=== PATIENT | female | born 1960 | race Caucasian/White ===

== ENCOUNTER → 2016-08-02 | Outpatient (CLI) | payer MEDICARE ==
[~2016-08-02] MED LIST: ACIDOPHILUS-PE1 EAC1 PO; ACIDOPHILUS1 CA1 PO; ADVAIR 230-21 INH; ADVAIR INH; ALBUTEROL MININEB NEB; ALBUTEROL17 GM INH; ALBUTEROL2.5 MG/3 M NEB; ANEXSIA 5/325 M1 TA1 PO; AUGMENTIN875 MG PO; BACTROBAN15 GM TOP; BENZTROPINE MESY1 MG PO; BREO ELLIPTA 11 EACH INH; CERTAVITE W/LUT1 TA1 PO; CHANTIX PO; COGENTIN1 M1 PO; COMPLETE MULTI1 EAC1 PO; DIAZEPAM PO; DILTIAZEM 24HR120 M1 PO; DILTIAZEM 24HR120 MG PO; DOC-Q-LACE100 MG PO; DOCUSATE SODIU100 MG PO; EXCEDRIN ES PO; FERREX 150 FOR1 EACH PO; FERREX 150 PLU1 EACH PO; GUAIFENESIN600 MG PO; HYDROCODON-ACE1 EAC7 PO; IRON325 MG PO; KCL PO; KLOR-CON M20 PO; KLOR-CON PO; LEXAPRO PO; LEXAPRO5 MG PO; LORTAB 7.5-3251 EACH PO; LORTAB 7.5-5001 TAB PO; MILK OF MAGNESIA PO; MIRALAX17 GM PO; MUCINEX100 MG PO; MULTI-VITAMIN1 EAC1 PO; NICOTINE TRANSDE7 MG EXT; OMNICEF300 M1 PO; PANTOPRAZOLE SO40 MG PO; PREDNISONE PO; PREDNISONE10 M1 PO; PREDNISONE10 MG/DOSE PO; SPIRIVA18 MCG INH; VALIUM10 MG PO; ZITHROMAX500 MG PO
--- NOTE | ~2016-08-02 | CT57 ---
[facility] A Service of [facility] RADIOLOGY TEXT RESULTS PATIENT: RORY VIEIRA LOCATION: [facility] : 56 UNIT #: [id number] AGE: [address]: Juan Moya MD SEX: F ORDER DR: [id number] [place] [id number] [facility]. [place], [place] [address] [id number] O MR#: [id number] Acc #: [id number] NAME: RORY VIEIRA : 1960 SEX: F STUDY DATE/TIME: 08/02/2016 15:50 UNIT: [facility] ROOM: STUDY DESCRIPTION: CT Chest Wo Cont Attending Physician: Juan Moya M.D. Referring Physician: Juan Moya M.D. Ordering Physician: Juan Moya M.D. Primary Care Physician: Titi Ruth M.D. MEDICAL IMAGING REPORT This report is preliminary unless electronic signature is present EXAM CT of the chest without contrast INDICATION 56-year-old female with followup COPD and emphysema. Shortness of breath for [address] of the chest was performed without contrast. Coronal and sagittal reformatted images obtained. This CT exam was performed with one or more of the following radiation dose reduction techniques: automatic exposure control, adjustment of mA and/or kV according to patient size, and iterative reconstruction. COMPARISON 12/19/2015 FINDINGS Severe emphysema. Stable scarring/atelectasis within the left lung. No significant change in the parenchymal consolidation within the posterior aspect of the right lung involving the right upper lobe and the superior segment of the right lower lobe. There are no new infiltrates. There is no lymphadenopathy. Trace pericardial fluid or thickening anteriorly. No pleural effusion. Stable small ovoid fluid density collection within the anterior right chest wall, likely a sebaceous cyst. Limited imaging of the upper abdomen is unremarkable. Bone windows demonstrate stable increased kyphosis of the thoracic spine. IMPRESSION 1. Severe emphysema. 2. No significant change in the parenchymal consolidation in the [facility] A Service [facility] RADIOLOGY TEXT RESULTS PATIENT: RORY VIEIRA LOCATION: [facility] : 56 UNIT #: [id number] AGE: [address]: Juan Moya MD SEX: F ORDER DR: posterior right lung. 3. No new infiltrates. Dictated by... Jesse Mueller M.D. THIS IS AN ELECTRONICALLY VERIFIED REPORT Jesse Mueller M.D. at 08/03/2016 8:57 AM JACQUELINE/dhaval TD: 08/03/2016 08:14 JOB #: [id number] MEDICAL IMAGING REPORT Page 1 of 1 COPY
== END | disposition home or self-care (01) ==
LOC: CCAT 15:29
DX: J44.1 Chronic obstructive pulmonary disease with (acute) exacerbation (principal); J43.9 Emphysema, unspecified
CPT/HCPCS: 71250

== ENCOUNTER 2016-08-11 18:44 | Emergency (ER) | payer MEDICARE ==
--- NOTE | ~2016-08-11 | CR72 ---
[facility] A Service of [facility] & [facility] RADIOLOGY TEXT RESULTS PATIENT: RORY VIEIRA LOCATION: [facility] : 56 UNIT #: [id number] AGE: [address]: Richard Vaughan MD SEX: F ORDER DR: [id number] [facility] [address] [place], [place] [address] [id number] E MR#: [id number] Acc #: [id number] NAME: RORY VIEIRA. : 1960 SEX: F STUDY DATE/TIME: 08/11/2016 18:51 UNIT: [facility] ROOM: STUDY DESCRIPTION: CR Chest Single View Portable Attending Physician: Richard Vaughan M.D. Ordering Physician: Richard Vaughan M.D. Primary Care Physician: Titi Ruth M.D. MEDICAL IMAGING REPORT This report is preliminary unless electronic signature is present EXAM Chest x-ray dated 08/11/2016 COMPARISON Chest 2 views dated 06/04/2016, CT chest without contrast dated 08/02/2016. HISTORY Chest pain for 6 days. FINDINGS Single view of the chest was obtained. Hyperinflated lungs are suggestive of emphysematous changes. Minimal atelectatic changes are in the lung bases bilaterally particularly in the right lower lung zone. No pleural effusion, pneumothorax or lung mass is seen. Postoperative changes with internal fixation of the left humerus is seen. Dictated by... Varun Dukes M.D. THIS IS AN ELECTRONICALLY VERIFIED REPORT Varun Dukes M.D. at 08/14/2016 1:39 PM CPR/mjs TD: 08/12/2016 13:27 JOB #: [id number] MEDICAL IMAGING REPORT Page 1 of 1 COPY
--- NOTE | ~2016-08-11 | EKG ---
PATIENT: RORY VIEIRA UNIT #: [id number] Ventricular Rate: 97 BPM Atrial Rate: 97 BPM P-R Interval: 140 ms QRS Duration: 82 ms Q-T Interval: 344 ms QTC Calculation(Bezet): 436 ms P [place]: 83 degrees Calculated R [place]: 46 degrees Calculated T [place]: 74 degrees Diagnosis Line: Sinus rhythm with occasional Premature ventricular Diagnosis Line: complexes Diagnosis Line: Biatrial enlargement Diagnosis Line: Abnormal ECG Diagnosis Line: When compared with ECG of 04-JUN-2016 12:45, Diagnosis Line: Premature ventricular complexes are now Present Diagnosis Line: Confirmed by DANUTA JORDAN MD ([id number]) on Diagnosis Line: 08/12/2016 4:54:43 PM INTERPRETING MD: ISELA
--- NOTE | ~2016-08-11 | CT16 ---
[facility] A Service of [facility] & [facility] RADIOLOGY TEXT RESULTS PATIENT: RORY VIEIRA LOCATION: [facility] : 56 UNIT #: [id number] AGE: [address]: Richard Vaughan MD SEX: F ORDER DR: [id number] [facility] [address] [place], [place] [address] [id number] MR#: [id number] Acc #: [id number] NAME: RORY VIEIRA. : 1960 SEX: F STUDY DATE/TIME: 08/11/2016 20:21 UNIT: [facility] ROOM: STUDY DESCRIPTION: CT Angio Chest for PE Attending Physician: Richard Vaughan M.D. Ordering Physician: Richard Vaughan M.D. Primary Care Physician: Titi Ruth M.D. MEDICAL IMAGING REPORT This report is preliminary unless electronic signature is present EXAM CT chest with contrast, pulmonary arteriography protocol, 08/11/2016. HISTORY A 56-year-old female in the ED complaining of 5-day history of chest pain and back pain. History of severe emphysema on home oxygen. TECHNIQUE CT examination of the chest was performed with IV contrast using pulmonary arteriography protocol. 3-D CTA images of the pulmonary arteries were reformatted in multiple planes. COMPARISON CT chest, 08/02/2016, 03/20/2016 and 10/12/2015. FINDINGS No pulmonary embolism is demonstrated. Normal-caliber thoracic aorta. Heart size is normal. Small pericardial effusion. 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 Severe pulmonary emphysema involving both lungs diffusely, greatest in the upper lobes. Bronchial wall thickening is seen in the central portions of both lower lobes with some mild hazy ground-glass infiltrate throughout the right lower lobe, likely representing acute bronchitis and mild pneumonitis. Chronic focal scarring is present in the superior segment right lower lobe. There is no significant pleural effusion. No suspicious mass or adenopathy within the mediastinum. Probable benign sebaceous cyst in the right anterior chest wall. Limited upper abdominal images show moderate dilatation of the extrahepatic bile ducts to the level of the ampulla. [facility] A Service of [facility] & [facility] RADIOLOGY TEXT RESULTS PATIENT: RORY VIEIRA LOCATION: [facility] #: [id number] : 56 UNIT #: [id number] AGE: [address]: Richrad Vaughan MD SEX: F ORDER DR: IMPRESSION 1. No evidence of pulmonary embolism. 2. Normal-caliber thoracic aorta. 3. Small pericardial effusion. Heart size normal. 4. Severe pulmonary emphysema involving both lungs diffusely, greatest in the upper lobes. 5. Diffuse bronchial wall thickening in the lower lungs and mild ground-glass opacity throughout the right lower lobe suggesting acute bronchitis and probable mild pneumonitis. 6. Chronic scarring and volume loss in the superior segment right lower lobe, unchanged since the last 2 prior studies. 7. Likely benign sebaceous cyst in the skin of the right anterior chest wall. 8. Limited upper abdominal images showing significant dilatation of the extrahepatic bile duct. Nondistended gallbladder. No definite intrahepatic bile duct dilatation. Dictated by... Juan Johansen M.D. THIS IS AN ELECTRONICALLY VERIFIED REPORT Juan Johansen M.D. at 08/14/2016 5:59 AM Suman TD: 08/12/2016 15:45 JOB #: [id number] MEDICAL IMAGING REPORT Page 1 of 1 COPY
[~2016-08-11 18:44] MED LIST changes: -ALBUTEROL2.5 MG/3 M NEB; -BREO ELLIPTA 11 EACH INH; -COMPLETE MULTI1 EAC1 PO; -DILTIAZEM 24HR120 M1 PO; -IRON325 MG PO; -KLOR-CON PO; -LEXAPRO PO; -LORTAB 7.5-3251 EACH PO; -MUCINEX100 MG PO; -PANTOPRAZOLE SO40 MG PO; -PREDNISONE10 M1 PO; -VALIUM10 MG PO
[2016-08-11 18:58] LABS: BASOPHIL% 0.2 % (0-2.5); DIFF IND NO; EOSINOPHIL# 0.1 X10e3 (0-0.7); EOSINOPHIL% 2.6 % (0.0-7.0); HEMATOCRIT 34.1 % (35.0-45.0); HEMOGLOBIN 10.8 gm/dL (12.0-16.0); LYMPHOCYTE# 1.4 X10e3 (1.0-3.5); LYMPHOCYTE% 24.4 % (17.0-45.0); MEAN CELL VOLUME 92.9 FL (83-96); MEAN CORPUSCULAR HEMOGLOBIN 29.3 PG (28-34); MEAN CORPUSCULAR HGB CONC 31.6 g/dL (30-36); MEAN PLATELET VOLUME 8.9 FL (6.5-11.5); MONOCYTE# 0.5 X10e3 (0-1.0); NEUTROPHIL# 3.7 X10e3 (1.5-7.1); NEUTROPHIL% 63.8 % (40-75); PLATELET COUNT 144 X10e3 (140-420); RED BLOOD COUNT 3.68 X10e (3.90-5.30); WHITE BLOOD COUNT 5.8 X10e3 (4.0-10.5)
[2016-08-11 19:01] LABS: POC - CKMB 1.8 ng/mL (0.0-7.9); POC - TROPONIN <0.05 ng/mL (<=0.05)
[2016-08-11 19:09] LABS: INR 0.9; PARTIAL THROMBOPLASTIN TIME 28.2 SECONDS (23.5-31.3); PROTHROMBIN TIME (PATIENT) 9.7 SECONDS (9.6-11.5)
[2016-08-11 19:35] LABS: ALBUMIN SERUM 4.4 g/dL (3.5-5.0); ALKALINE PHOSPHATASE 107 U/L (32-92); ALT (SGPT) 15 U/L (10-40); AST (SGOT) 18 U/L (10-42); BILIRUBIN, DIRECT <0.1 mg/dL (0.0-0.2); BILIRUBIN,INDIRECT 0.2 mg/dL (0.0-0.9); BILIRUBIN,TOTAL 0.3 mg/dL (0.2-2.0); BLOOD UREA NITROGEN 17 mg/dL (9-23); BUN/CREATININE RATIO 56.66; CALCIUM SERUM 9.6 mg/dL (8.4-10.2); CARBON DIOXIDE 37 mmol/L (22-31); CHLORIDE 94 mmol/L (100-111); CREATININE SERUM 0.3 mg/dL (0.6-1.4); GLOM FILT RATE Estimated 126.3 mL/min (>60); GLUCOSE FASTING 134 mg/dL (70-110); POTASSIUM 4.3 mmol/L (3.5-5.1); PROTEIN TOTAL SERUM 7.3 g/dL (6.0-8.3); SODIUM 140 mmol/L (135-145)
== END 2016-08-11 21:52 | disposition home or self-care (01) ==
LOC: CED 18:44
PROVIDERS: Emergency Medicine
DX: J18.9 Pneumonia, unspecified organism (principal); J20.9 Acute bronchitis, unspecified; F41.9 Anxiety disorder, unspecified; F32.9 Major depressive disorder, single episode, unspecified; Z90.49 Acquired absence of other specified parts of digestive tract; Z88.8 Allergy status to other drugs, medicaments and biological substances; F17.200 Nicotine dependence, unspecified, uncomplicated
CPT/HCPCS: 36415; 71010; 71275; 80048; 80076; 82553; 84484; 85025; 85379; 85610; 85730; 93005; 96374; 99284; J2930; Q9967

== ENCOUNTER 2016-12-06 17:25 | Inpatient (IN) | payer MEDICARE ==
[~2016-12-06] VITALS: Ht 157.5 cm; Wt 55.8 kg
--- NOTE | ~2016-12-06 | CT71 ---
[facility] A Service of [facility] RADIOLOGY TEXT RESULTS PATIENT: RORY VIEIRA LOCATION: [facility] 46[facility] : 56 UNIT #: [id number] AGE: [address]: Juan Moya MD SEX: F ORDER DR: [id number] [facility] [address] [place], [place] [address] [id number] I MR#: [id number] Acc #: [id number] NAME: RORY VIEIRA : 1960 SEX: F STUDY DATE/TIME: 12/06/2016 20:05 UNIT: [facility] ROOM: [facility] STUDY DESCRIPTION: CT Head Wo Contrast Attending Physician: Juan Moya M.D. Ordering Physician: Carl Lino D.O. Primary Care Physician: Titi Ruth M.D. MEDICAL IMAGING REPORT This report is preliminary unless electronic signature is present EXAM Head CT without contrast 12/06/2016. HISTORY Diffuse headache, nausea, chills and fever beginning 12/05/2016 with dizziness. TECHNIQUE Axial noncontrast images were obtained from the skull base to the vertex. This CT exam was performed with one or more of the following radiation dose reduction techniques: automatic exposure control, adjustment of mA and/or kV according to patient size, and iterative reconstruction. FINDINGS Ventricular size and configuration are normal. There is no evidence of acute infarct or hemorrhage. There are no extraaxial fluid collections. No mass lesion or mass effect is seen. There are no skull fractures. IMPRESSION Normal noncontrast head CT. Dictated by... Brody Bolanos M.D. THIS IS AN ELECTRONICALLY VERIFIED REPORT Brody Bolanos M.D. at 12/07/2016 10:22 AM KRT/gz TD: 12/07/2016 09:07 JOB #: [id number] MEDICAL IMAGING REPORT [facility] A Service [facility] RADIOLOGY TEXT RESULTS PATIENT: RORY VIEIRA LOCATION: [place] [address] : 56 UNIT #: [id number] AGE: [address]: Juan Moya MD SEX: F ORDER DR: Page 1 of 1 COPY
--- NOTE | ~2016-12-06 | DS ---
Unit #: [id number] #: [id number] Patient: RORY VIEIRA [id number] [address] [address] [id number] I MR#: [id number] NAME: RORY VIEIRA. ROOM: 461 Age: 56 Sex: F Admission Date: 12/06/2016 : 1960 Discharge Date: 12/11/2016 Attending Physician: Juan Moya M.D. Primary Care Physician: Titi Ruth M.D. DISCHARGE SUMMARY DISCHARGE DIAGNOSES 1. Acute and chronic hypoxemic respiratory failure. 2. Chronic obstructive pulmonary disease exacerbation. 3. Right lower lobe pneumonia, Strep pneumonia. DISCHARGE MEDICATIONS 1. Albuterol neb every four hours as needed. 2. Breo 100 one puff daily. 3. Prednisone 40 mg for three days, decrease by 10 mg every three days until off. 4. Lexapro 5 mg p.o. daily. 5. Valium as per direction of Dr. Ruth. 6. Diltiazem 120 mg daily. 7. Mucinex 60 mg daily. 8. Ferrous sulfate 65/325 daily. 9. Multivitamin daily. 10. Hydrocodone APAP 7.5/325 every 6 hours as needed. 11. Protonix 40 mg p.o. daily. 12. Potassium 20 mEq daily. 13. Zithromax 500 mg daily x3 days. HOSPITAL COURSE Patient admitted with exacerbation of COPD and acute and chronic respiratory failure. White count was elevated at about 20,000. Exam revealed egophony right base. Chest x-ray showed no definite pneumonia. Followup chest x-ray revealed some mild atelectasis left lower lobe. CLINICAL IMPRESSION Pneumonia, right lower lobe community acquired. Sputum grew out Strep pneumoniae. She was treated with inhaled bronchodilators, IV Solu-Medrol and broad spectrum antibiotics in the form of Zithromax and Rocephin. Strep pneumonia was sensitive to all antibiotics tested. She improved with treatment. Steroids were weaned. She is being discharged home on her home oxygen. She was only on albuterol nebulizer at home because she could not afford any other medicines. We have recommended Breo one inhalation daily. She can get samples at the office. She will followup with Dr. Ruth. We will see if she is able to obtain medications through drug company due to lack of funds. She is also to be discharged on her home O2. Dictated by... Garret Fernandez M.D. Unit #: [id number] #: [id number] Patient: RORY VIEIRA BHUMI/ts TD: 12/12/2016 11:13 JOB #: [id number] CC: Juan Moya M.D. DISCHARGE SUMMARY Page 1 of 1 X Garret Fernandez MD X DISCHARGE SUMMARY
--- NOTE | ~2016-12-06 | EKG ---
PATIENT: RORY VIEIRA UNIT #: [id number] Ventricular Rate: 117 BPM Atrial Rate: 117 BPM P-R Interval: 142 ms QRS Duration: 90 ms Q-T Interval: 324 ms QTC Calculation(Bezet): 451 ms P [place]: 82 degrees Calculated R [place]: 59 degrees Calculated T [place]: 71 degrees Diagnosis Line: Sinus tachycardia Diagnosis Line: Nonspecific ST and T wave abnormality Diagnosis Line: Abnormal ECG Diagnosis Line: When compared with ECG of 11-AUG-2016 18:11, Diagnosis Line: Premature ventricular complexes are no longer Diagnosis Line: Present Diagnosis Line: Nonspecific T wave abnormality, worse in Anterior Diagnosis Line: leads Diagnosis Line: Confirmed by DAVIDE BRAND MD ([id number]) on 12/07/2016 Diagnosis Line: 7:12:56 PM INTERPRETING MD: SUNDAY CERNA
--- NOTE | ~2016-12-06 | HP ---
Unit #: [id number] #: [id number] Patient: RORY VIEIRA [id number] [address] [address] [id number] I MR#: [id number] NAME: RORY VIEIRA. ROOM: 461 Age: 56 Sex: F Admission Date: 12/06/2016 : 1960 Attending Physician: Juan Moya M.D. Primary Care Physician: Titi Ruth M.D. HISTORY AND PHYSICAL HISTORY OF PRESENT ILLNESS Ms. Vieira is a 56-year-old white female followed by Dr. Moya in our office for COPD and chronic respiratory failure who presents with a one-day history of cough, sputum production, fever, chills, and some right-sided pain on inspiration. She had been in her normal state of health up until that time when she awakened with more shortness of breath. She has a history of malnutrition and had a PEG tube placed in the past, but it was removed within the last year. In the emergency room on admission, she was noted to have wheezing. Her O2 saturation was 97% on six liters per minute, pulse was 125, temperature was 99.8, and blood pressure was 118/75. She was given 125 of Solu-Medrol IV and some hydrocodone. We were called for admission. PAST MEDICAL HISTORY 1. Chronic obstructive pulmonary disease. 2. Chronic respiratory failure maintained on home O2. Last PCO2 was 55 in May 2016. Current CO2 on chemistry panel is 32. PAST SURGICAL HISTORY 1. Open reduction and internal fixation. 2. Left humeral fracture. 3. Appendectomy. ALLERGIES Codeine. HOME MEDICATIONS 1. Albuterol nebulizer 4 times daily. 2. Lexapro. 3. Potassium chloride. 4. Diltiazem. 5. Protonix. 6. Mucinex. 7. Multivitamins. 8. Lortab 7.5/325. 9. Valium 10 t.i.d. as needed. 10. Iron 325 daily. FAMILY HISTORY Congestive heart failure. SOCIAL HISTORY Continues to smoke cigarettes less than a half a pack a day. No alcohol Unit #: [id number] #: [id number] Patient: RORY VIEIRA and no illicit drugs. REVIEW OF SYSTEMS CONSTITUTIONAL: Did have fever and chills. HEENT: No rhinorrhea or nasal congestion. PULMONARY: Did have cough and sputum production. CARDIAC: Did have right-sided chest pain on coughing. GASTROINTESTINAL: No nausea or vomiting. GENITOURINARY: No hematuria or dysuria. ENDOCRINE: No polyuria or polydipsia. HEMATOLOGIC: No easy bruising or bleeding. SKIN: No rash. NEUROLOGIC: No unilateral weakness or numbness. PHYSICAL EXAMINATION VITAL SIGNS: Blood pressure is 123/75, pulse 62, respiratory rate 15, and afebrile. HEENT: Normocephalic and atraumatic. Pupils equal, round, and reactive. Sclerae are nonicteric. Nasal passages patent. Posterior pharynx clear, Mallampati III. Edentulous. NECK: Supple without JVD, mass, or thyromegaly. LUNGS: Diminished breath sounds bilaterally, prolonged expiratory phase, and mild expiratory wheeze. CARDIAC: Heart sounds distant, regular rate and rhythm. Could not appreciate murmur, rub, or gallop. ABDOMEN: Nontender. Bowel sounds are present. No hepatosplenomegaly. EXTREMITIES: Without clubbing, cyanosis, or edema. NEUROLOGIC: Awake, alert, and oriented x3. Cranial nerves intact. Muscle strength symmetric bilaterally. PSYCHIATRIC: Affect calm. SKIN: No rash. DIAGNOSTIC STUDIES LABORATORY: Reviewed. Chemistries reviewed with CO2 of 32 and creatinine 0.6. Lactic acid is 1.2. Coags normal. D-dimer 208. White blood cell count 20,500, hematocrit 35.7, and platelet count normal. IMAGING: Chest x-ray reviewed and no acute pulmonary infiltrates. CT of the head unremarkable. IMPRESSION 1. Chronic obstructive pulmonary disease exacerbation. 2. Acute on chronic respiratory failure. 3. Probable right lower lobe pneumonia with E to A changes right base, although no gross x-ray presence of consolidation. PLAN Broad spectrum antibiotics to cover for community-acquired pneumonia. Steroids and bronchodilators for COPD exacerbation. Recommend smoking cessation. Will follow up chest x-ray in the a.m. to see if pneumonia fluffs out. Dictated by Sara Olivares TD: 12/07/2016 14:29 Unit #: [id number] #: [id number] Patient: RORY VIEIRA JOB #: [id number] HISTORY AND PHYSICAL Page 1 of 1 X Garret Fernandez MD HISTORY AND PHYSICAL
--- NOTE | ~2016-12-06 | CR63 ---
[facility] A Service of [facility] & [facility] RADIOLOGY TEXT RESULTS PATIENT: RORY VIEIRA LOCATION: [facility] 46- : 56 UNIT #: [id number] AGE: [address]: Juan Moya MD SEX: F ORDER DR: [id number] [facility] [address] [place], [place] [address] [id number] I MR#: [id number] Acc #: [id number] NAME: RORY VIEIRA : 1960 SEX: F STUDY DATE/TIME: 12/08/2016 7:36 UNIT: [facility] ROOM: [facility] STUDY DESCRIPTION: CR Chest 2 View Attending Physician: Juan Moya M.D. Ordering Physician: Garret Fernandez M.D. Primary Care Physician: Titi Ruth M.D. MEDICAL IMAGING REPORT This report is preliminary unless electronic signature is present EXAM 2 views chest, 12/08/2016 HISTORY COPD exacerbation 2 days duration. Short of air, right side chest pain, headache 2 days duration. Former smoker. FINDINGS AP left anterior oblique view of the chest is presented. Comparison 12/06/2016. There is no significant change. Stable cardiac enlargement. Stable hyperinflation of the lungs consistent with underlying emphysema. Stable linear scarring or atelectasis in the right and left mid lung zones. There is a new linear/band-like density in the right lower lung zone favored to be an area of atelectasis. There is no compelling evidence of pneumonia or pulmonary edema. No pleural effusion or pneumothorax. No acute bony abnormality. Degenerative changes in the spine are stable. Prior open reduction and internal fixation left humerus. Visualized hardware intact. Dictated by... Wojciech Hernandez M.D. THIS IS AN ELECTRONICALLY VERIFIED REPORT Wojciech Hernandez M.D. at 12/08/2016 6:15 PM Zeus TD: 12/08/2016 12:21 JOB #: [id number] MEDICAL IMAGING REPORT Page 1 of 1 COPY
--- NOTE | ~2016-12-06 | CR72 ---
[facility] A Service of [facility] & [facility] RADIOLOGY TEXT RESULTS PATIENT: RORY VIEIRA LOCATION: [facility] [id number] : 56 UNIT #: [id number] AGE: [address]: Juan Moya MD SEX: F ORDER DR: [id number] [facility] [address] [place], [place] [address] [id number] I MR#: [id number] Acc #: [id number] NAME: RORY VIEIRA. : 1960 SEX: F STUDY DATE/TIME: 12/06/2016 17:48 UNIT: [facility] ROOM: [facility] STUDY DESCRIPTION: CR Chest Single View Portable Attending Physician: Juan Moya M.D. Ordering Physician: Mary Calloway M.D. Primary Care Physician: Titi Ruth M.D. MEDICAL IMAGING REPORT This report is preliminary unless electronic signature is present EXAM Portable chest 12/06/2016. HISTORY Chest pain, shortness breath, lethargy, chest congestion, nausea and headache beginning 12/05/2016, benign essential hypertension, smoking history for 30 years. FINDINGS The heart is enlarged but stable compared with 08/11/2016. The lungs are hyperinflated with emphysematous and fibrotic changes characteristic of COPD. No airspace consolidation is seen. There are no pleural effusions. Postoperative changes of prior fixation of left humeral fracture. IMPRESSION Cardiomegaly and COPD. No active pulmonary disease. Dictated by... Brody Bolanos M.D. THIS IS AN ELECTRONICALLY VERIFIED REPORT Brody Bolanos M.D. at 12/07/2016 10:22 AM KRT/felisa TD: 12/07/2016 08:23 JOB #: [id number] MEDICAL IMAGING REPORT Page 1 of 1 COPY
[2016-12-06 18:52] LABS: BASOPHIL% 0.1 % (0-2.5); EOSINOPHIL% 0.1 % (0.0-7.0); HEMATOCRIT 35.7 % (35.0-45.0); HEMOGLOBIN 11.7 gm/dL (12.0-16.0); LYMPHOCYTE# 0.9 X10e3 (1.0-3.5); LYMPHOCYTE% 4.6 % (17.0-45.0); MEAN CELL VOLUME 93.7 FL (83-96); MEAN CORPUSCULAR HEMOGLOBIN 30.7 PG (28-34); MEAN CORPUSCULAR HGB CONC 32.7 g/dL (30-36); MEAN PLATELET VOLUME 8.9 FL (6.5-11.5); MONOCYTE% 4.8 % (3.0-12.0); NEUTROPHIL# 18.5 X10e3 (1.5-7.1); NEUTROPHIL% 90.4 % (40-75); PLATELET COUNT 160 X10e3 (140-420); RED CELL DISTRIBUTION WIDTH 12.6 % (11.0-15.5); WHITE BLOOD COUNT 20.5 X10e3 (4.0-10.5)
[2016-12-06 18:53] LABS: INR 1.1; PARTIAL THROMBOPLASTIN TIME 30.8 SECONDS (23.5-31.3); PROTHROMBIN TIME (PATIENT) 12.1 SECONDS (10.0-11.7)
[2016-12-06 18:54] LABS: DIFF IND YES
[2016-12-06 19:00] LABS: ALBUMIN SERUM 4.4 g/dL (3.5-5.0); BILIRUBIN, DIRECT 0.1 mg/dL (0.0-0.2); BILIRUBIN,INDIRECT 0.4 mg/dL (0.0-0.9); BILIRUBIN,TOTAL 0.5 mg/dL (0.2-2.0); CALCIUM SERUM 9.5 mg/dL (8.4-10.2); CREATININE SERUM 0.6 mg/dL (0.6-1.4); GLOM FILT RATE Estimated 100.5 mL/min (>60); POTASSIUM 3.4 mmol/L (3.5-5.1); PROTEIN TOTAL SERUM 7.6 g/dL (6.0-8.3)
[2016-12-06 19:39] LABS: PLATELET ESTIMATE NORMAL (NORMAL)
[2016-12-06] MEDS ORDERED: ALBUTEROL2.5 MG/3 M NEB (22:29)
[2016-12-06] MEDS ORDERED: KLOR-CON PO (22:30)
[2016-12-06] MEDS ORDERED: LEXAPRO PO (22:30)
[2016-12-06] MEDS ORDERED: PANTOPRAZOLE SO40 MG PO (22:31)
[2016-12-06] MEDS ORDERED: DILTIAZEM 24HR120 M1 PO (22:31)
[2016-12-06] MEDS ORDERED: MUCINEX100 MG PO (22:32)
[2016-12-06] MEDS ORDERED: LORTAB 7.5-3251 EACH PO (22:33)
[2016-12-06] MEDS ORDERED: COMPLETE MULTI1 EAC1 PO (22:33)
[2016-12-06] MEDS ORDERED: VALIUM10 MG PO (22:34)
[2016-12-06] MEDS ORDERED: IRON325 MG PO (22:34)
[2016-12-11] MEDS ORDERED: ZITHROMAX500 MG PO (11:08)
[2016-12-11] MEDS ORDERED: PREDNISONE10 M1 PO (11:08)
[2016-12-11] MEDS ORDERED: BREO ELLIPTA 11 EACH INH (11:09)
== END 2016-12-11 14:20 | disposition home or self-care (01) | DRG 189 ==
LOC: CED 17:25 → CEDOF 21:55 → CED 22:10 → CEDOF 22:10 → C4C 23:02 → CEDOF 23:02 → C4C 12-11 14:20
PROVIDERS: Emergency Medicine
DX: J96.01 Acute respiratory failure with hypoxia (principal); J15.4 Pneumonia due to other streptococci; J44.0 Chronic obstructive pulmonary disease with (acute) lower respiratory infection; J44.1 Chronic obstructive pulmonary disease with (acute) exacerbation; J98.11 Atelectasis; F17.210 Nicotine dependence, cigarettes, uncomplicated
CPT/HCPCS: 36415; 70450; 71010; 71020; 80048; 80076; 83605; 85025; 85379; 85610; 85730; 87040; 87070; 87077; 87186; 87205; 93005; 94640; 94664; 94760; 96374; 99285; J0456; J0696; J1650; J2920; J2930